=== PATIENT | female | born 1950 | race Caucasian/White ===

== ENCOUNTER 2016-08-02 17:28 | Emergency (ER) | payer OTHER ==
--- NOTE | 2016-08-02 19:32 | DIAGNOSTIC IMAGING REPORT ---
PROCEDURE: XR CHEST 2 VIEW INDICATION: SHORTNESS OF BREATH TECHNIQUE: Two views. COMPARISON: 01/19/2016 FINDINGS: The cardiomediastinal contour is stable, within normal limits. The central vasculature is not congested. Strandy linear density laterally in the left mid lung and minimal hazy opacities posterior and lateral at the lung bases. Small bilateral effusions. The visualized osseous structures are intact. IMPRESSION: 1. Strand-like density laterally in the left mid lung is likely subsegmental atelectasis from mucous plugging, although an infectious process or infarct is not excluded. Correlate clinically. 2. Minor bibasilar opacities and small bilateral effusions. 3. Discussed with Soni Moore in the emergency room.
--- NOTE | 2016-08-02 21:28 | DIAGNOSTIC IMAGING REPORT ---
PROCEDURE: CTA THORAX WITH CONTRAST INDICATION: SHORTNESS OF BREATH TECHNIQUE: 84 ml of Isovue 370 was injected intravenously and axial images were obtained of the chest with 3D sagittal and coronal MIP reconstructions. COMPARISON: None. FINDINGS: Normal opacification of the pulmonary arterial tree without filling defect. The central pulmonary arteries are normal caliber. Thoracic aorta is normal caliber. The great vessels demonstrate a normal branching pattern. Heart size is normal. Trace pericardial effusion/pericardial thickening. There are shoddy prevascular lymph nodes and mildly prominent adenopathy in the AP window, paratracheal, subcarinal, and bilateral hilar regions. There is moderate peribronchial thickening in the lingula, right middle, and lower lobes bilaterally. Plate-like atelectatic changes are seen in the lateral lingula. Mild bibasilar ground-glass opacity and mild interstitial thickening. Very small bilateral pleural effusions, right greater than left. Osseous structures are intact. The images of the upper abdomen demonstrate a mildly enlarged liver, partially decompressed gallbladder with pericholecystic fluid at the fundus, and mildly enlarged spleen measuring at least 14.6 cm in craniocaudal dimension. IMPRESSION: 1. No pulmonary embolus. 2. Bilateral peribronchial thickening and left upper lobe atelectatic changes. In combination with mediastinal and hilar adenopathy, findings are probably infectious/inflammatory, although the chronicity is uncertain. 3. Slight interstitial thickening, hazy bibasilar ground-glass opacity, and small bilateral pleural effusions raise the possibility of interstitial and early alveolar edema. 4. Partially decompressed gallbladder with questionable pericholecystic fluid around the fundus. Clinical correlation is recommended. Ultrasound for further evaluation of the gallbladder needed. 5. Mild hepatosplenomegaly. 6. Discussed with Soni Moore in the emergency room.
--- NOTE | 2016-08-02 21:33 | ED NURSING NOTES ---
Clinical Report - Nurses [facility] [address] [place] [address] 08/02/2016 17:30 Patient: DARON LOCKETT TRIAGE Triage time 17:45. Acuity: LEVEL 3. Chief Complaint: SHORTNESS OF BREATH, DIFFICULTY BREATHING and WHEEZING. Alert. SEPSIS SCREEN: Sepsis Screen. Negative (no infection suspected/documented). --17:52 Lorna Rodriguez R.N. 17:43 08/02/16. BP: 155/101. HR: 81. RR: 32. O2 saturation: 94%. Temp: 98.7 F. Pain level now: 02/06. --17:52 Lorna Rodriguez R.N. DESTINEY COMA SCORE: Destiney Coma Scale: 15- eyes open spontaneously (4); best verbal response- oriented x 4 (5); best motor response- obeys commands (6). --17:52 Lorna Rodriguez R.N. Weight: 104.3 kg stated. Height/Length: 66.5 inches Per Patient. BMI: 36.6. --17:46 Lorna Rodriguez R.N. Medications Albuterol Sulfate HFA Inhalation 2 puffs, 4x a day as needed. ClonazePAM Oral 0.5 mg, at bedtime. Furosemide Oral 40 mg, daily. Ibuprofen Oral 800 mg. Mirtazapine Oral 30 mg, at bedtime. Omeprazole Oral. QUEtiapine Fumarate Oral 200 mg, daily. --17:49 Lorna Rodriguez R.N. Sennosides Oral. Simvastatin Oral 40 mg, daily. Venlafaxine HCl Oral 75 mg, 2x a day. Warfarin Sodium Oral, , for a fib. --17:49 Lorna Rodriguez R.N. The following entry was struck and corrected by Lorna Rodriguez R.N., 17:50 (08/02/16) Reason for correction - other(correction). <<STRICKEN ENTRY-- Warfarin Sodium Oral. --17:49 Lorna Rodriguez R.N. --END STRIKE>>. Allergies Benadryl. Codeine. Fluticasone. Methocarbamol. Montelukast. Tramadol. --17:49 Lorna Rodriguez R.N. History Arrived by private vehicle. Historian: patient. Accompanied by spouse. Primary physician (Miriam at [facility]). Onset. (2 days ago). 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 SOCIAL HX: Former smoker, end date 2004. History of drug use. (quit meth 12 years ago). No alcohol use. NUTRITIONAL RISK ASSESSMENT: The nutritional risk assessment revealed no deficiencies. FUNCTIONAL ASSESSMENT: Functional assessment: no impairments noted. --17:52 Lorna Rodriguez R.N. PROBLEMS: Oral Anticoagulation Therapy. COPD - Chronic Obstructive Pulmonary Disease. Hypertension. Atrial Fibrillation. Bipolar Disorder. Depression. --17:50 Lorna Rodriguez R.N. ADDITIONAL SURGERIES: Appendectomy. Esophageal surgery. --17:51 Lorna Rodriguez R.N. Interventions ID band on patient. To room. --17:52 Lorna Rodriguez R.N. PHYSICAL ASSESSMENT 17:52 08/02/16. Patient gowned. RESPIRATORY: Moderate respiratory distress. The patient can speak a few words at a time. Accessory muscle use. Wheezing present. --17:52 Lorna Rodriguez R.N. RESPIRATORY: ( Pt's smokes.). --17:57 Lorna Rodriguez R.N. NURSING PROGRESS NOTES 17:53 08/02/16. Patient identifiers checked. Call light placed in reach. Bed placed in lowest position. Patient ready for evaluation- chart flagged. --17:53 Lorna Rodriguez R.N. 18:03 08/02/2016 Albuterol Neb TX 2 unit dose given. --18:03 Sagar Low 18:03 08/02/2016 ALBUTEROL NEB W ATROVENT Neb TX 1 unit dose given. --18:03 Sagar Low EKG time: (1816). EKG was ordered, performed by a tech and shown to the MURAL PAINTER. --18:23 Uche Spicer, RAGHU Tech1 18:29 08/02/2016 Site #1 started via IV in the left antecubital space with an 20g angiocath, with aseptic technique and good blood return; one attempt. Blood drawn: rainbow set. Labeled in the presence of the patient and sent to the lab. Saline lock flushed with 10 mL saline. --18:29 Jeannette Hanson R.N. 18:36 08/02/2016 SOLU-MEDROL (MethylPREDNISolone Sodium Succ) IVP 125 mg given over 2 minute(s) via site #1. Allergies verified and confirmed 5 rights. IV patency established. IV site checked: no pain, redness, or swelling. IV flushed thoroughly pre- and post-medication administration. IVP given by RN. --18:36 Jeannette Hanson R.N. Patient walked to radiology with [employer]. (18:36 Aug 02 2016). --18:36 Jeannette Hanson R.N. 18:36 08/02/16. BP: 112/42 (large adult cuff) taken on the right arm, while sitting. HR: 96. RR: 20. O2 saturation: 98% on room air. Pain level now: 0/10. --18:37 Jeannette Hanson R.N. 18:00 08/02/16. BP: 140/79 (large adult cuff) taken on the right arm, while sitting. HR: 92. RR: 20. O2 saturation: 98% on room air. --18:37 Jeannette Hanson R.N. 18:53 08/02/16. BP: 155/109 (large adult cuff) taken on the right arm, while sitting. HR: 89. RR: 20 (regular). O2 saturation: 95% on room air. Pain level now: 8/10. --18:54 Jeannette Hanson R.N. Patient walked back to ED from radiology with [employer]. (18:54 Aug 02 2016). --18:54 Jeannette Hanson R.N. 19:56 08/02/16. BP: 103/47. HR: 92. RR: 18. O2 saturation: 93%. Pain level now: 8/10. Additional comments: Chest pain. --19:58 Jesus Freedman R.N. 21:25 08/02/2016 Toradol IVP 30 mg given over 2 minute(s) via site #1. Allergies verified and confirmed 5 rights. IV patency established. IV site checked: no pain, redness, or swelling. IV flushed thoroughly pre- and post-medication administration. IVP given by RN. --21:25 Jesus Freedman R.N. 21:45 08/02/2016 Hydrocodone-APAP (Hydrocodone-Acetaminophen) PO 5/325 mg Tablets 1 tab given. Allergies verified, confirmed 5 rights and sedative warning given to the patient. --23:02 Jesus Freedman R.N. DISPOSITION / DISCHARGE 21:40 08/02/16. BP: 148/87. HR: 67. RR: 20. O2 saturation: 96% on room air. Temp: 98.2 F (oral). Pain level now: 05/09. Additional comments: Chest. --22:46 Jesus Freedman R.N. Departure time: 2144. --22:46 Jesus Freedman R.N. 21:45. Condition at departure: improved. No learning barriers present. Discharge instructions provided and reviewed with the patient. Reviewed medication(s) (prescription given to pt). Reviewed referral to family practice for followup. Patient verbalized understanding. Written instructions provided in Jamaican. The patient was discharged by the physician. She was discharged home and accompanied by top collar maker. She left the Emergency Department ambulatory and via private vehicle. Plant Facilities Technician driving. --22:50 Jesus Freedman R.N. Locked/Released at 08/02/2016 23:03 by Jesus Freedman R.N.
--- NOTE | 2016-08-02 21:33 | ED CLINICAL REPORT ---
Clinical Report - Physicians/Mid Levels [facility] [address] [place] [address] 08/02/2016 17:30 Patient: DARON LOCKETT Time Seen: 17:55; initial patient contact, initial documentation, patient care assumed. Arrived- By private vehicle. Historian- patient. HISTORY OF PRESENT ILLNESS Chief Complaint: DYSPNEA and HISTORY OF CHRONIC OBSTRUCTIVE PULMONARY DISEASE. This started 2 days ago and is still present. The dyspnea is described as moderate and is worsened by walking and exertion. The patient has had a cough, dyspnea on exertion and anxiety. No sputum production, fever, wheezing, chest pain or dizziness. No palpitations. She has had chest discomfort (epigastric). Similar symptoms previously: Chronically, worse. Recent medical care: Not recently seen/assessed. REVIEW OF SYSTEMS No sore throat, nasal discharge, sinus drainage or vomiting. She has had abdominal pain. The pain is described as located in the epigastrium. All systems otherwise negative, except as recorded above. PAST HISTORY See nurses notes. PROBLEMS: Oral Anticoagulation Therapy. COPD - Chronic Obstructive Pulmonary Disease. Hypertension. Atrial Fibrillation. Bipolar Disorder. Depression. --17:50 Lorna Rodriguez R.N. ADDITIONAL SURGERIES: Appendectomy. Esophageal surgery. --17:51 Lorna Rodriguez R.N. Recovering substance abuse (methamphetamines). SOCIAL HISTORY Former smoker. History of drug use: methamphetamines. Is a recovering addict. No alcohol use. No recent travel. Is a local resident. FAMILY HISTORY Negative. ADDITIONAL NOTES The nursing notes have been reviewed with agreement regarding the chief complaint, HPI, ROS, PMH and patient medications and allergies. PHYSICAL EXAM Vital Signs: 08/02/2016 17:43 BP: 155/101. HR: 81. RR: 32. O2 saturation: 94%. Temp: 98.7 F. Pain level now: 10/10. Have been reviewed as abnormal and appear to be correct. Hypertensive. Heart rate normal. Tachypneic. Temperature normal. Oxygen saturation normal. Appearance: Alert. No acute distress. Anxious. Eyes: Pupils equal, round and reactive to light. Eyes normal inspection. Neck: Normal inspection. No jugular venous distention. Neck supple. CVS: Normal heart rate and rhythm. Heart sounds normal. Pulses normal. Respiratory: No respiratory distress. Breath sounds abnormal. Inspiratory mild bilateral wheezes diffusely. Abdomen: Mildly obese. Back: Normal inspection. Skin: Skin warm and dry. Normal skin color. No rash. Normal skin turgor. Extremities: Extremities exhibit normal ROM. No lower extremity edema. Neuro: Oriented X 3. No motor deficit. No sensory deficit. LABS, X-RAYS, AND EKG EKG: EKG time: (1816). No acute process. No acute ischemia. Normal EKG. Rate: 79. Normal EKG. The study has been interpreted contemporaneously by me (and dr moore). The EKG appears to be a good tracing. Interpretation time: 1818. Chest X-ray: Normal Chest X-Ray. The X-rays were interpreted by the radiologist and discussed with the radiologist. Interpretation time: 19:29. Chest CT: . (IMPRESSION: 1. No pulmonary embolus. 2. Bilateral peribronchial thickening and left upper lobe atelectatic changes. In combination with mediastinal and hilar adenopathy, findings are probably infectious/inflammatory, although the chronicity is uncertain. 3. Slight interstitial thickening, hazy bibasilar ground-glass opacity, and small bilateral pleural effusions raise the possibility of interstitial and early alveolar edema. 4. Partially decompressed gallbladder with questionable pericholecystic fluid around the fundus. Clinical correlation is recommended. Ultrasound for further evaluation of the gallbladder needed. 5. Mild hepatosplenomegaly. 6. Discussed with Soni Moore in the emergency room. Electronically Final signed by:Radha Coronado MD 08/02/2016 9:28:09 PM). The study was interpreted by the radiologist and discussed with the radiologist. Interpretation time: 21:16. Laboratory Tests: CBC w Diff: (MORRIS: 08/02/2016 18:25) ( MsgRcvd 08/02/2016 18:44) Final results Test Result Flag Units (Reference) WHITE BLOOD COUNT 7.3 K/uL (4.5-11.5) RED BLOOD COUNT 3.89 L M/uL (4.00-5.20) HEMOGLOBIN 11.2 L gm/dL (12.0-16.0) HEMATOCRIT 33.4 L % (36.0-46.0) MEAN CELL VOLUME 86 fL (80-100) MEAN CORPUSCULAR HGB 29 pg (26-34) MEAN CORPUSCULAR HGB CONC 34 g/dL (31-37) RED CELL DISTRIBUTION WIDTH 14.7 % (11.6-14.8) PLATELET COUNT 217 K/uL (150-400) NEUTROPHIL % 66.4 % (50-75) LYMPH % 25.4 % (25-40) MONO % 4.6 % (3-14) EOSINOPHIL % 3.4 % (0-4) BASOPHIL % 0.2 % (0-2) [id number]: (MORRIS: 08/02/2016 18:25) ( [facility] 08/02/2016 19:53) Final results Test Result Flag Units (Reference) D-DIMER QUANTITATIVE 1.18 H ug/mLFEU (0.27-0.52) The primary value of this quantitative assay relates toits negative predictive value (i.e. exclusion) of pulmonaryembolism/deep vein thrombosis/DIC.Elevated levels of d-dimer may also occur with:, age, cancer, inflammation, liver disease,post-op, infection, hematoma, coronary disease, peripheralarteriopathy, bleeding disorders and thrombolytic treatment.Results should be correlated with other clinical andradiological data.Testing Methodology: Latex Immunoassay BNP: (MORRIS: 08/02/2016 18:25) ( [facility] 08/02/2016 19:00) Final results Test Result Flag Units (Reference) B-TYPE NATRIURETIC PEPTIDE 176 H pg/ml (5-100) CMP: (MORRIS: 08/02/2016 18:25) ( [facility] 08/02/2016 18:49) Final results Test Result Flag Units (Reference) GLUCOSE 132 H mg/dL (70-110) BUN 13 mg/dL (7-18) CREATININE 0.7 mg/dL (0.6-1.3) Estimated GFR >60 mL/min Estimated GFR- >60 mL/min Note: Persistent reduction over 3 months in eGFR<60 mL/min/1.73 m2 defines CKD. Patients with eGFR values>=60 mL/min/1.73 m2 may also have CKD if evidence ofpersistent proteinuria. Additional information may be foundat [email or web address].org. SODIUM 143 mmol/L (136-145) POTASSIUM 4.2 mmol/L (3.5-5.1) CHLORIDE 107 mmol/L (98-107) CARBON DIOXIDE 29 mmol/L (21-32) CALCIUM 9.3 mg/dL (8.5-10.1) TOTAL PROTEIN 6.6 g/dL (6.4-8.2) ALBUMIN 3.4 g/dL (3.3-5.0) BILIRUBIN, TOTAL 0.6 mg/dL (0.0-1.0) ALKALINE PHOSPHATASE 151 H U/L (46-116) AST (SGOT) 45 H U/L (15-37) ALT (SGPT) 69 U/L (12-78) CPK 21 L U/L (24-260) TROPONIN I <0.05 L ng/mL (0.00-1.5) TROPONIN REFERENCE RANGE:<0.1 NEGATIVE0.1-1.5 INDETERMINANT>1.5 POSITIVE . PROGRESS AND PROCEDURES Course of Care: 1830. RT reporting that pt opened up after last neb tx and was breathing much better 21:33 08/02/16. pt updated with ct results, pt stating she still felt better and ready to go home. 08/02/2016 18:36 BP: 112/42. HR: 96. RR: 20. O2 saturation: 98%. Pain level now: 0/10. 23:06. Vital Signs: have been reviewed as normal and appear to be correct. The patient's symptoms are unchanged. She complains of pain. Vital signs have been reviewed. Physical exam findings are improved. Alert. Oriented X3. No acute distress. Breath sounds normal. No respiratory distress. Normal heart rate and rhythm. Heart sounds normal. Abdomen soft. Abdominal tenderness. Mild abdominal tenderness in the epigastric area and left upper quadrant. Skin warm and dry. Oriented X 3. Patient counseled in person regarding the patient's stable condition, test results and diagnosis. 21:17. Differential Diagnosis: I considered asthma, chronic obstructive pulmonary disease, pneumonia, pleural effusion, congestive heart failure, myocardial infarction and hyperventilation as a possible cause of dyspnea in this patient. This is a partial list of diagnoses considered. (anxiety). Above considerations are based on history, physical exam, reassessment, laboratory data, X-Ray data and EKG. Differential diagnosis was discussed with patient. Disposition: Discharged home in good and improved condition (21:33). Condition: good and stable. CLINICAL IMPRESSION Acute exacerbation of COPD (asthmatic, chronic bronchitis). No emphysema. INSTRUCTIONS Avoid tobacco smoke. Do not smoke. Warnings: GENERAL WARNINGS: Return or contact your physician immediately if your condition worsens or changes unexpectedly, if not improving as expected, or if other problems arise. SPECIFICALLY, return if you develop chest pain, neck pain, jaw pain, shoulder pain, arm pain, back pain, fever, productive cough, difficulty breathing, excessive fatigue, a fluttering sensation in the chest, fainting or leg swelling. Prescription Medications: Albuterol HFA oral inhaler: inhale 1 to 2 puffs every four to six hours as needed for difficulty breathing. Dispense one (1) unit. No refills. Prednisone 20 mg: take 3 orally every day for 5 days. Dispense fifteen (15). No refills. [place] 5 mg / 325 mg tablets: take 1 orally every 6 hours as needed for pain. Dispense ten (10). No refill. Follow-up: Follow up with your doctor in two days even if well. Call for an appointment. Summary of care provided to patient. Understanding of the discharge instructions verbalized by patient. (Electronically signed by Soni Moore A.R.N.P. 08/02/2016 23:06)
--- NOTE | 2016-08-02 21:33 | ED NURSING NOTES ---
Clinical Report - Nurses [facility] [address] [place] [address] 08/02/2016 17:30 Patient: DARON LOCKETT TRIAGE Triage time 17:45. Acuity: LEVEL 3. Chief Complaint: SHORTNESS OF BREATH, DIFFICULTY BREATHING and WHEEZING. Alert. SEPSIS SCREEN: Sepsis Screen. Negative (no infection suspected/documented). --17:52 Lorna Rodriguez R.N. 17:43 08/02/16. BP: 155/101. HR: 81. RR: 32. O2 saturation: 94%. Temp: 98.7 F. Pain level now: 02/06. --17:52 Lorna Rodriguez R.N. DESTINEY COMA SCORE: Destiney Coma Scale: 15- eyes open spontaneously (4); best verbal response- oriented x 4 (5); best motor response- obeys commands (6). --17:52 Lorna Rodriguez R.N. Weight: 104.3 kg stated. Height/Length: 66.5 inches Per Patient. BMI: 36.6. --17:46 Lorna Rodriguez R.N. Medications Albuterol Sulfate HFA Inhalation 2 puffs, 4x a day as needed. ClonazePAM Oral 0.5 mg, at bedtime. Furosemide Oral 40 mg, daily. Ibuprofen Oral 800 mg. Mirtazapine Oral 30 mg, at bedtime. Omeprazole Oral. QUEtiapine Fumarate Oral 200 mg, daily. --17:49 Lorna Rodriguez R.N. Sennosides Oral. Simvastatin Oral 40 mg, daily. Venlafaxine HCl Oral 75 mg, 2x a day. Warfarin Sodium Oral, , for a fib. --17:49 Lorna Rodriguez R.N. The following entry was struck and corrected by Lorna Rodriguez R.N., 17:50 (08/02/16) Reason for correction - other(correction). <<STRICKEN ENTRY-- Warfarin Sodium Oral. --17:49 Lorna Rodriguez R.N. --END STRIKE>>. Allergies Benadryl. Codeine. Fluticasone. Methocarbamol. Montelukast. Tramadol. --17:49 Lorna Rodriguez R.N. History Arrived by private vehicle. Historian: patient. Accompanied by spouse. Primary physician (Miriam at [facility]). Onset. (2 days ago). 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 SOCIAL HX: Former smoker, end date 2004. History of drug use. (quit meth 12 years ago). No alcohol use. NUTRITIONAL RISK ASSESSMENT: The nutritional risk assessment revealed no deficiencies. FUNCTIONAL ASSESSMENT: Functional assessment: no impairments noted. --17:52 Lorna Rodriguez R.N. PROBLEMS: Oral Anticoagulation Therapy. COPD - Chronic Obstructive Pulmonary Disease. Hypertension. Atrial Fibrillation. Bipolar Disorder. Depression. --17:50 Lorna Rodriguez R.N. ADDITIONAL SURGERIES: Appendectomy. Esophageal surgery. --17:51 Lorna Rodriguez R.N. Interventions ID band on patient. To room. --17:52 Lorna Rodriguez R.N. PHYSICAL ASSESSMENT 17:52 08/02/16. Patient gowned. RESPIRATORY: Moderate respiratory distress. The patient can speak a few words at a time. Accessory muscle use. Wheezing present. --17:52 Lorna Rodriguez R.N. RESPIRATORY: ( Pt's smokes.). --17:57 Lorna Rodriguez R.N. NURSING PROGRESS NOTES 17:53 08/02/16. Patient identifiers checked. Call light placed in reach. Bed placed in lowest position. Patient ready for evaluation- chart flagged. --17:53 Lorna Rodriguez R.N. 18:03 08/02/2016 Albuterol Neb TX 2 unit dose given. --18:03 Sagar Low 18:03 08/02/2016 ALBUTEROL NEB W ATROVENT Neb TX 1 unit dose given. --18:03 Sagar Low EKG time: (1816). EKG was ordered, performed by a tech and shown to the WILDLIFE CONSERVATIONIST. --18:23 Uche Spicer, RAGHU Tech1 18:29 08/02/2016 Site #1 started via IV in the left antecubital space with an 20g angiocath, with aseptic technique and good blood return; one attempt. Blood drawn: rainbow set. Labeled in the presence of the patient and sent to the lab. Saline lock flushed with 10 mL saline. --18:29 Jeannette Hanson R.N. 18:36 08/02/2016 SOLU-MEDROL (MethylPREDNISolone Sodium Succ) IVP 125 mg given over 2 minute(s) via site #1. Allergies verified and confirmed 5 rights. IV patency established. IV site checked: no pain, redness, or swelling. IV flushed thoroughly pre- and post-medication administration. IVP given by RN. --18:36 Jeannette Hanson R.N. Patient walked to radiology with [employer]. (18:36 Aug 02 2016). --18:36 Jeannette Hanson R.N. 18:36 08/02/16. BP: 112/42 (large adult cuff) taken on the right arm, while sitting. HR: 96. RR: 20. O2 saturation: 98% on room air. Pain level now: 0/10. --18:37 Jeannette Hanson R.N. 18:00 08/02/16. BP: 140/79 (large adult cuff) taken on the right arm, while sitting. HR: 92. RR: 20. O2 saturation: 98% on room air. --18:37 Jeannette Hanson R.N. 18:53 08/02/16. BP: 155/109 (large adult cuff) taken on the right arm, while sitting. HR: 89. RR: 20 (regular). O2 saturation: 95% on room air. Pain level now: 8/10. --18:54 Jeannette Hanson R.N. Patient walked back to ED from radiology with [employer]. (18:54 Aug 02 2016). --18:54 Jeannette Hanson R.N. 19:56 08/02/16. BP: 103/47. HR: 92. RR: 18. O2 saturation: 93%. Pain level now: 8/10. Additional comments: Chest pain. --19:58 Jesus Freedman R.N. 21:25 08/02/2016 Toradol IVP 30 mg given over 2 minute(s) via site #1. Allergies verified and confirmed 5 rights. IV patency established. IV site checked: no pain, redness, or swelling. IV flushed thoroughly pre- and post-medication administration. IVP given by RN. --21:25 Jesus Freedman R.N. 21:45 08/02/2016 Hydrocodone-APAP (Hydrocodone-Acetaminophen) PO 5/325 mg Tablets 1 tab given. Allergies verified, confirmed 5 rights and sedative warning given to the patient. --23:02 Jesus Freedman R.N. DISPOSITION / DISCHARGE 21:40 08/02/16. BP: 148/87. HR: 67. RR: 20. O2 saturation: 96% on room air. Temp: 98.2 F (oral). Pain level now: 05/09. Additional comments: Chest. --22:46 Jesus Freedman R.N. Departure time: 2144. --22:46 Jesus Freedman R.N. 21:45. Condition at departure: improved. No learning barriers present. Discharge instructions provided and reviewed with the patient. Reviewed medication(s) (prescription given to pt). Reviewed referral to family practice for followup. Patient verbalized understanding. Written instructions provided in Gabonese. The patient was discharged by the physician. She was discharged home and accompanied by residential treatment staff. She left the Emergency Department ambulatory and via private vehicle. Crusher Machine Operator driving. --22:50 Jesus Freedman R.N. Locked/Released at 08/02/2016 23:03 by Jesus Freedman R.N.
--- NOTE | 2016-08-02 21:33 | ED ORDER SUMMARY ---
..... Patient: DARON LOCKETT OrderSheet [facility] VisitID: [id number] [address] [place] [address] 65y, F Registration Date/Time: 08/02/2016 ORDER SHEET Weight: 104.3 kg (stated) Allergies: Benadryl, Codeine, Fluticasone, Methocarbamol, Montelukast, Tramadol GENERAL ORDERS: Chest 2V Urgent (17:59 08/02/2016 HBivens A.R.N.P.) (Ack 18:01 LNations ER Tech1) (18:45 LNations ER Tech1) CBC w Diff Urgent (17:59 08/02/2016 HBivens A.R.N.P.) (Ack 18:00 LNations ER Tech1) (18:29 JSanders R.N.) CMP Urgent (17:59 08/02/2016 HBivens A.R.N.P.) (Ack 18:00 LNations ER Tech1) (18:29 JSanders R.N.) CPK Urgent (17:59 08/02/2016 HBivens A.R.N.P.) (Ack 18:00 LNations ER Tech1) (18:29 JSanders R.N.) Troponin-I Urgent (17:59 08/02/2016 HBivens A.R.N.P.) (Ack 18:00 LNations ER Tech1) (18:29 JSanders R.N.) BNP Urgent (17:59 08/02/2016 HBivens A.R.N.P.) (Ack 18:00 LNations ER Tech1) (18:29 JSanders R.N.) EKG - ER Stat (17:59 08/02/2016 HBivens A.R.N.P.) (Ack 18:00 LNations ER Tech1) (18:23 PWeiler ER Tech1) D-Dimer Urgent (19:29 08/02/2016 HBivens A.R.N.P.) (Ack 19:36 IJurca ER Tech1) (20:14 IJurca ER Tech1) CTA Thorax w Cont (No) (normal) Urgent (19:56 08/02/2016 HBivens A.R.N.P.) (Ack 19:57 IJurca ER Tech1) (20:48 MCampbell) MEDICATION ORDERS: Albuterol Neb w Atrovent 1 unit dose (NOW) (18:00 08/02/2016 HBivens A.R.N.P.) (18:03 MNance) Albuterol Neb Tx 2 unit doses (NOW) (18:00 08/02/2016 HBivens A.R.N.P.) (18:03 MNance) Hydrocodone-APAP PO 5/325 mg (NOW, HIGH ALERT MEDICATION) (23:00 08/02/2016 Pita R.N. verbal order read back to HBivens A.R.N.P.) (23:02 Pita R.N.) IV FLUIDS: IV Saline Lock (17:59 08/02/2016 HBivens A.R.N.P.) (18:29 Costa R.N.) Solu-MEDROL IV 125 mg (NOW) (18:00 08/02/2016 HBivens A.R.N.P.) (18:36 ALBANanders R.N.) Toradol IV 30 mg (NOW) (20:02 08/02/2016 HBivens A.R.N.P.) (21:25 omanelli R.N.) ORDER SHEET NOTES: [Electronically signed by Jesus Freedman R.N. (23:03 08/02/2016)] [Electronically signed by Soni Moore.R.N.P. (23:06 08/02/2016)] [Electronically locked/signed by Jesus Freedman R.N. (23:03 08/02/2016)]
--- NOTE | 2016-08-02 21:33 | ED ORDER SUMMARY ---
..... Patient: DARON LOCKETT OrderSheet [facility] VisitID: [id number] [address] [place] [address] 65y, F Registration Date/Time: 08/02/2016 ORDER SHEET Weight: 104.3 kg (stated) Allergies: Benadryl, Codeine, Fluticasone, Methocarbamol, Montelukast, Tramadol GENERAL ORDERS: Chest 2V Urgent (17:59 08/02/2016 HBivens A.R.N.P.) (Ack 18:01 LNations ER Tech1) (18:45 LNations ER Tech1) CBC w Diff Urgent (17:59 08/02/2016 HBivens A.R.N.P.) (Ack 18:00 LNations ER Tech1) (18:29 JSanders R.N.) CMP Urgent (17:59 08/02/2016 HBivens A.R.N.P.) (Ack 18:00 LNations ER Tech1) (18:29 JSanders R.N.) CPK Urgent (17:59 08/02/2016 HBivens A.R.N.P.) (Ack 18:00 LNations ER Tech1) (18:29 JSanders R.N.) Troponin-I Urgent (17:59 08/02/2016 HBivens A.R.N.P.) (Ack 18:00 LNations ER Tech1) (18:29 JSanders R.N.) BNP Urgent (17:59 08/02/2016 HBivens A.R.N.P.) (Ack 18:00 LNations ER Tech1) (18:29 JSanders R.N.) EKG - ER Stat (17:59 08/02/2016 HBivens A.R.N.P.) (Ack 18:00 LNations ER Tech1) (18:23 PWeiler ER Tech1) D-Dimer Urgent (19:29 08/02/2016 HBivens A.R.N.P.) (Ack 19:36 IJurca ER Tech1) (20:14 IJurca ER Tech1) CTA Thorax w Cont (No) (normal) Urgent (19:56 08/02/2016 HBivens A.R.N.P.) (Ack 19:57 IJurca ER Tech1) (20:48 MCampbell) MEDICATION ORDERS: Albuterol Neb w Atrovent 1 unit dose (NOW) (18:00 08/02/2016 HBivens A.R.N.P.) (18:03 MNance) Albuterol Neb Tx 2 unit doses (NOW) (18:00 08/02/2016 HBivens A.R.N.P.) (18:03 MNance) Hydrocodone-APAP PO 5/325 mg (NOW, HIGH ALERT MEDICATION) (23:00 08/02/2016 Pita R.N. verbal order read back to HBivens A.R.N.P.) (23:02 Pita R.N.) IV FLUIDS: IV Saline Lock (17:59 08/02/2016 HBivens A.R.N.P.) (18:29 Costa R.N.) Solu-MEDROL IV 125 mg (NOW) (18:00 08/02/2016 HBivens A.R.N.P.) (18:36 ALBANanders R.N.) Toradol IV 30 mg (NOW) (20:02 08/02/2016 HBivens A.R.N.P.) (21:25 omanelli R.N.) ORDER SHEET NOTES: [Electronically signed by Jesus Freedman R.N. (23:03 08/02/2016)] [Electronically signed by Soni Moore.R.N.P. (23:06 08/02/2016)] [Electronically locked/signed by Jesus Freedman R.N. (23:03 08/02/2016)]
--- NOTE | 2016-08-02 23:07 | ED MED RECONCILIATION SUMMARY ---
Patient: DARON LOCKETT Medication Reconciliation Report [facility] VisitID: [id number] [place] [address] 65y, F Registration Date/Time: 08/02/2016 Weight: 104.3 kg Height/Length: 60 in. BMI: 36.6 ALLERGIES: Benadryl, Codeine, Fluticasone, Methocarbamol, Montelukast, Tramadol The patient's Home Medications are listed below: THE FOLLOWING MEDICATIONS NEED TO BE RECONCILED: Albuterol Sulfate HFA Inhalation 2 puffs, 4x a day ClonazePAM Oral 0.5 mg, at bedtime Furosemide Oral 40 mg, daily Ibuprofen Oral 800 mg Mirtazapine Oral 30 mg, at bedtime Omeprazole Oral QUEtiapine Fumarate Oral 200 mg, daily Sennosides Oral Simvastatin Oral 40 mg, daily Venlafaxine HCl Oral 75 mg, 2x a day Warfarin Sodium Oral, for a fib The source(s) of the original Home Medication information: Not obtained. The following Medications were given to the patient in the Emergency Department: Albuterol [Neb Tx] Neb TX 2 unit dose, administered: 08/02/2016 6:03:00 PM ALBUTEROL NEB W ATROVENT Neb TX 1 unit dose, administered: 08/02/2016 6:03:00 PM SOLU-MEDROL [IVP] IVP 125 mg, administered: 08/02/2016 6:36:00 PM Toradol [IVP] IVP 30 mg, administered: 08/02/2016 9:25:00 PM Hydrocodone-APAP [PO] PO 1 tab, administered: 08/02/2016 9:45:00 PM The following Medications were prescribed to the patient: Albuterol HFA oral inhaler: inhale 1 to 2 puffs every four to six hours as needed for difficulty breathing. Dispense one (1) unit. No refills. -- Soni Moore, A.R.N.P. Prednisone 20 mg: take 3 orally every day for 5 days. Dispense fifteen (15). No refills. -- Soni Moore, A.R.N.P. [place] 5 mg / 325 mg tablets: take 1 orally every 6 hours as needed for pain. Dispense ten (10). No refill. -- Soni Moore A.R.N.P.
--- NOTE | 2016-08-02 23:07 | ED DISCHARGE INSTRUCTIONS ---
Patient: DARON LOCKETT General Instructions [facility] VisitID: [id number] [place] [address] 65y, F Registration Date/Time: 08/02/2016 Acute exacerbation of COPD (asthmatic, chronic bronchitis). No emphysema. INSTRUCTIONS Avoid tobacco smoke. Do not smoke. Warnings: GENERAL WARNINGS: Return or contact your physician immediately if your condition worsens or changes unexpectedly, if not improving as expected, or if other problems arise. SPECIFICALLY, return if you develop chest pain, neck pain, jaw pain, shoulder pain, arm pain, back pain, fever, productive cough, difficulty breathing, excessive fatigue, a fluttering sensation in the chest, fainting or leg swelling. Prescription Medications: Albuterol HFA oral inhaler: inhale 1 to 2 puffs every four to six hours as needed for difficulty breathing. Dispense one (1) unit. No refills. Prednisone 20 mg: take 3 orally every day for 5 days. Dispense fifteen (15). No refills. [place] 5 mg / 325 mg tablets: take 1 orally every 6 hours as needed for pain. Dispense ten (10). No refill. Follow-up: Follow up with your doctor in two days even if well. Call for an appointment. Summary of care provided to patient. Understanding of the discharge instructions verbalized by patient. ADDITIONAL INFORMATION COPD Flare Both emphysema and chronic bronchitis are forms of chronic obstructive pulmonary disease (COPD). It is most often caused by many years of smoking tobacco. Many things can make your lung disease suddenly get worse. These causes include the common cold, pneumonia, acute bronchitis, missing doses of your regular breathing medicines, or being around smoke, dust, or other air pollutants. A COPD flare may last 7 to 14 days. Your doctor may prescribe medicineto relax your airways and prevent wheezing. Your doctor may also prescribe antibiotics if he or she thinks you havea bacterial infection. Prednisone can helpease inflammation in a severe attack. Home care Here are things you can do at home: Drink lots of water or other fluids (at least 10 glasses a day) during an attack. This will loosen lung secretions and make it easier to breathe. If you have heart or kidney disease, check with your doctor before you drink extra amounts of fluids. Take prescribed medicine exactly at the times advised. If you have a hand-held inhaler or aerosol breathing medicine, don't use it more than once every 4 hours, unless your doctor tells you to. If you were givenan antibiotic or prednisone, take all of the medicine even if you are feeling better after a few days. Don't smoke. Avoid being aroundthe smoke of others. If you were given an inhaler, use it exactly as directed. If you need to use it more often than prescribed, your condition may be getting worse. Call your doctor. Follow-up care Follow up with your health care provider.If you are 65 or older or have chronic asthma or COPD, you should get a single dose of the pneumococcal vaccine and aflu shot each year. You may need a second dose of the pneumococcal vaccine if you had the first dose at a younger age. Your health care provider will let you know if you need a second dose. For all other people, the usual dose for the pneumococcal vaccine is 1 or 2 shots. Yourprovider can discuss this with you. When to seek medical care Get prompt medical attention ifany of these occur: Increased wheezing or shortness of breath Need to use your inhalers more often than usual without relief Fever of 100.4F(38C) or higher, or as directed by your health care provider Coughing up lots of dark-colored or bloody sputum (mucus) Chest pain with each breath You do not start to improve within 24 hours Bronchitis, Viral (Adult: No Abx) You have a viral bronchitis. This illness is contagious during the first few days and is spread through the air by coughing and sneezing, or by direct contact (touching the sick person and then touching your own eyes, nose, or mouth). Most viral illnesses resolve within 10-14 days with rest and simple home remedies, although they may sometimes last for several weeks. Antibiotics will not kill a virus and are generally not prescribed for this condition. Home Care: If symptoms are severe, rest at home for the first 2-3 days. When resuming activity, don't let yourself become overly tired. Do not smoke and avoid the smoke of others. You may use acetaminophen (Tylenol) or ibuprofen (Motrin, Advil) to control fever or pain, unless another pain medicine was prescribed. [NOTE: If you have chronic liver or kidney disease or ever had a stomach ulcer or GI bleeding, talk with your doctor before using these medicines.] (Aspirin should never be used in anyone under 18 years of age who is ill with a fever. It may cause severe liver damage.) Your appetite may be poor so a light diet is fine. Avoid dehydration by drinking 6-8 glasses of fluids per day (water, sport drinks such as Gatorade, juices, tea, soup, etc.). Extra fluids will help loosen secretions in the nose and lung. [id number] cold medicines will not shorten the length of the illness, but may be helpful for cough (Robitussin DM), sore throat (Chloraseptic lozenges or spray), nasal and sinus congestion (Actifed or Sudafed). [NOTE: Do not use decongestants if you have high blood pressure.] Follow Up with your doctor or as directed by our staff if you are not improving over the next week. NOTE: If you are age 65 or older, or if you have chronic asthma or COPD, we recommend a PNEUMOCOCCAL VACCINATION every five years and a yearly INFLUENZAVACCINATION (FLU-SHOT) every . Ask your doctor about this. If you had an X-ray, a radiologist will review it. You will be notified of any new findings that may affect your care.] Get Prompt Medical Attention if any of the following occur: Fever over 100.4F (38.0C) for more than three days Trouble breathing, wheezing or pain with breathing Coughing up blood or increased amounts of colored sputum Weakness, drowsiness, headache, facial pain, ear pain or a stiff neck Albuterol Sulfate Pressurized inhalation, suspension What is this medicine? ALBUTEROL (al BYOO ter ole) is a bronchodilator. It helps open up the airways in your lungs to make it easier to breathe. This medicine is used to treat and to prevent bronchospasm. How should I use this medicine? This medicine is for inhalation through the mouth. Follow the directions on your prescription label. Take your medicine at regular intervals. Do not use more often than directed. Make sure that you are using your inhaler correctly. Ask you doctor or health care provider if you have any questions. Talk to your comber tender regarding the use of this medicine in children. Special care may be needed. What side effects may I notice from receiving this medicine? Side effects that you should report to your doctor or health residential care facility manager as soon as possible: allergic reactions like skin rash, itching or hives, swelling of the face, lips, or tongue breathing problems chest pain feeling faint or lightheaded, falls high blood pressure irregular heartbeat fever muscle cramps or weakness pain, tingling, numbness in the hands or feet vomiting Side effects that usually do not require medical attention (report to your doctor or health residential care facility manager if they continue or are bothersome): cough difficulty sleeping headache nervousness or trembling stomach upset stuffy or runny nose throat irritation unusual taste What may interact with this medicine? anti-infectives like chloroquine and pentamidine caffeine cisapride diuretics medicines for colds medicines for depression or for emotional or psychotic conditions medicines for weight loss including some herbal products methadone some antibiotics like clarithromycin, erythromycin, levofloxacin, and linezolid some heart medicines steroid hormones like dexamethasone, cortisone, hydrocortisone theophylline thyroid hormones What if I miss a dose? If you miss a dose, use it as soon as you can. If it is almost time for your next dose, use only that dose. Do not use double or extra doses. Where should I keep my medicine? Keep out of the reach of children. Store at room temperature between 15 and 30 degrees C (59 and 86 degrees F). The contents are under pressure and may burst when exposed to heat or flame. Do not freeze. This medicine does not work as well if it is too cold. Throw away any unused medicine after the expiration date. Inhalers need to be thrown away after the labeled number of puffs have been used or by the expiration date; whichever comes first. Ventolin HFA should be thrown away 12 months after removing from foil pouch. Check the instructions that come with your medicine. What should I tell my health care provider before I take this medicine? They need to know if you have any of the following conditions: diabetes heart disease or irregular heartbeat high blood pressure pheochromocytoma seizures thyroid disease an unusual or allergic reaction to albuterol, levalbuterol, sulfites, other medicines, foods, dyes, or preservatives or trying to get breast-feeding What should I watch for while using this medicine? Tell your doctor or health residential care facility manager if your symptoms do not improve. Do not use extra albuterol. If your asthma or bronchitis gets worse while you are using this medicine, call your doctor right away. If your mouth gets dry try chewing sugarless gum or sucking hard candy. Drink water as directed. Prednisone Oral tablet What is this medicine? PREDNISONE (PRED ni sone) is a corticosteroid. It is commonly used to treat inflammation of the skin, joints, lungs, and other organs. Common conditions treated include asthma, allergies, and arthritis. It is also used for other conditions, such as blood disorders and diseases of the adrenal glands. How should I use this medicine? Take this medicine by mouth with a glass of water. Follow the directions on the prescription label. Take this medicine with food. If you are taking this medicine once a day, take it in the morning. Do not take more medicine than you are told to take. Do not suddenly stop taking your medicine because you may develop a severe reaction. Your doctor will tell you how much medicine to take. If your doctor wants you to stop the medicine, the dose may be slowly lowered over time to avoid any side effects. Talk to your comber tender regarding the use of this medicine in children. Special care may be needed. What side effects may I notice from receiving this medicine? Side effects that you should report to your doctor or health residential care facility manager as soon as possible: allergic reactions like skin rash, itching or hives, swelling of the face, lips, or tongue changes in emotions or moods changes in vision depressed mood eye pain fever or chills, cough, sore throat, pain or difficulty passing urine increased thirst swelling of ankles, feet Side effects that usually do not require medical attention (report to your doctor or health residential care facility manager if they continue or are bothersome): confusion, excitement, restlessness headache nausea, vomiting skin problems, acne, thin and shiny skin trouble sleeping weight gain What may interact with this medicine? Do not take this medicine with any of the following medications: metyrapone mifepristone This medicine may also interact with the following medications: aminoglutethimide amphotericin B aspirin and aspirin-like medicines barbiturates certain medicines for diabetes, like glipizide or glyburide cholestyramine cholinesterase inhibitors cyclosporine digoxin diuretics ephedrine female hormones, like estrogens and control pills isoniazid ketoconazole NSAIDS, medicines for pain and inflammation, like ibuprofen or naproxen phenytoin rifampin toxoids vaccines warfarin What if I miss a dose? If you miss a dose, take it as soon as you can. If it is almost time for your next dose, talk to your doctor or health residential care facility manager. You may need to miss a dose or take an extra dose. Do not take double or extra doses without advice. Where should I keep my medicine? Keep out of the reach of children. Store at room temperature between 15 and 30 degrees C (59 and 86 degrees F). Protect from light. Keep container tightly closed. Throw away any unused medicine after the expiration date. What should I tell my health care provider before I take this medicine? They need to know if you have any of these conditions: Pasquale's syndrome diabetes glaucoma heart disease high blood pressure infection (especially a virus infection such as chickenpox, cold sores, or herpes) kidney disease liver disease mental illness myasthenia gravis osteoporosis seizures stomach or intestine problems thyroid disease an unusual or allergic reaction to lactose, prednisone, other medicines, foods, dyes, or preservatives or trying to get breast-feeding What should I watch for while using this medicine? Visit your doctor or health residential care facility manager for regular checks on your progress. If you are taking this medicine over a prolonged period, carry an identification card with your name and address, the type and dose of your medicine, and your doctor's name and address. This medicine may increase your risk of getting an infection. Tell your doctor or health residential care facility manager if you are around anyone with measles or chickenpox, or if you develop sores or blisters that do not heal properly. If you are going to have surgery, tell your doctor or health residential care facility manager that you have taken this medicine within the last twelve months. Ask your doctor or health residential care facility manager about your diet. You may need to lower the amount of salt you eat. This medicine may affect blood sugar levels. If you have diabetes, check with your doctor or health residential care facility manager before you change your diet or the dose of your diabetic medicine. Hydrocodone Bitartrate, Acetaminophen Oral tablet What is this medicine? ACETAMINOPHEN; HYDROCODONE (a set a MAXWELL shawna fen; tae droe KOE done) is a pain reliever. It is used to treat mild to moderate pain. How should I use this medicine? Take this medicine by mouth. Swallow it with a full glass of water. Follow the directions on the prescription label. If the medicine upsets your stomach, take the medicine with food or milk. Do not take more than you are told to take. Talk to your comber tender regarding the use of this medicine in children. This medicine is not approved for use in children. What side effects may I notice from receiving this medicine? Side effects that you should report to your doctor or health residential care facility manager as soon as possible: allergic reactions like skin rash, itching or hives, swelling of the face, lips, or tongue breathing problems confusion feeling faint or lightheaded, falls stomach pain yellowing of the eyes or skin Side effects that usually do not require medical attention (report to your doctor or health residential care facility manager if they continue or are bothersome): nausea, vomiting stomach upset What may interact with this medicine? alcohol antihistamines isoniazid medicines for depression, anxiety, or psychotic disturbances medicines for sleep muscle relaxants naltrexone narcotic medicines (opiates) for pain phenobarbital ritonavir tramadol What if I miss a dose? If you miss a dose, take it as soon as you can. If it is almost time for your next dose, take only that dose. Do not take double or extra doses. Where should I keep my medicine? Keep out of the reach of children. This medicine can be abused. Keep your medicine in a safe place to protect it from theft. Do not share this medicine with anyone. Selling or giving away this medicine is dangerous and against the law. Store at room temperature between 15 and 30 degrees C (59 and 86 degrees F). Protect from light. Keep container tightly closed. Throw away any unused medicine after the expiration date. Discard unused medicine and used packaging carefully. Pets and children can be harmed if they find used or lost packages. What should I tell my health care provider before I take this medicine? They need to know if you have any of these conditions: brain tumor Crohn's disease, inflammatory bowel disease, or ulcerative colitis drink more than 3 alcohol-containing drinks per day drug abuse or addiction head injury heart or circulation problems kidney disease or problems going to the bathroom liver disease lung disease, asthma, or breathing problems an unusual or allergic reaction to acetaminophen, hydrocodone, other opioid analgesics, other medicines, foods, dyes, or preservatives or trying to get breast-feeding What should I watch for while using this medicine? Tell your doctor or health residential care facility manager if your pain does not go away, if it gets worse, or if you have new or a different type of pain. You may develop tolerance to the medicine. Tolerance means that you will need a higher dose of the medicine for pain relief. Tolerance is normal and is expected if you take the medicine for a long time. Do not suddenly stop taking your medicine because you may develop a severe reaction. Your body becomes used to the medicine. This does NOT mean you are addicted. Addiction is a behavior related to getting and using a drug for a non-medical reason. If you have pain, you have a medical reason to take pain medicine. Your doctor will tell you how much medicine to take. If your doctor wants you to stop the medicine, the dose will be slowly lowered over time to avoid any side effects. You may get drowsy or dizzy when you first start taking the medicine or change doses. Do not drive, use machinery, or do anything that may be dangerous until you know how the medicine affects you. Stand or sit up slowly. There are different types of narcotic medicines (opiates) for pain. If you take more than one type at the same time, you may have more side effects. Give your health care provider a list of all medicines you use. Your doctor will tell you how much medicine to take. Do not take more medicine than directed. Call emergency for help if you have problems breathing. The medicine will cause constipation. Try to have a bowel movement at least every 2 to 3 days. If you do not have a bowel movement for 3 days, call your doctor or health residential care facility manager. Too much acetaminophen can be very dangerous. Do not take Tylenol (acetaminophen) or medicines that contain acetaminophen with this medicine. Many non-prescription medicines contain acetaminophen. Always read the labels carefully. You have been given the following additional information: COPD Flare Bronchitis, No Antibiotic (Adult) Albuterol Sulfate Pressurized inhalation, suspension Prednisone Oral tablet Hydrocodone Bitartrate, Acetaminophen Oral tablet (Electronically signed by Soni Moore A.R.N.P. 08/02/2016 23:06)
--- NOTE | 2016-08-02 23:07 | ED MAR SUMMARY ---
..... Medication Administration Record [address] [place] [address] Patient: DARON LOCKETT Visit ID: [id number] 65y, F Weight: 104.3 kg Height/Length: 66.5 in BMI: 36.6 ALLERGIES: Benadryl, Codeine, Fluticasone, Methocarbamol, Montelukast, Tramadol Given 18:03 08/02/2016 Sagar Low, Medication Administered: ALBUTEROL NEB W ATROVENT, Dose: 1 unit dose Neb TX. Medication Ordered: Albuterol Neb w Atrovent 1 unit dose (NOW). Given 18:03 08/02/2016 Sagar Low, Medication Administered: ALBUTEROL [NEB TX], Dose: 2 unit dose Neb TX. Medication Ordered: Albuterol Neb Tx 2 unit doses (NOW). Given 18:36 08/02/2016 Jeannette Hanson R.N. Medication Administered: SOLU-MEDROL [IVP] (METHYLPREDNISOLONE SODIUM SUCC), Dose: 125 mg IVP over 2 minute(s), Site: #1 left AC. Medication Ordered: Solu-MEDROL IV 125 mg (NOW). Given 21:25 08/02/2016 Jesus Freedman R.N. Medication Administered: TORADOL [IVP], Dose: 30 mg IVP over 2 minute(s), Site: #1 left AC. Medication Ordered: Toradol IV 30 mg (NOW). Given 21:45 08/02/2016 Jesus Freedman R.N. Medication Administered: HYDROCODONE-APAP [PO] (HYDROCODONE-ACETAMINOPHEN), Dose: 1 tab 5/325 mg Tablets PO. Medication Ordered: Hydrocodone-APAP PO 5/325 mg (NOW, HIGH ALERT MEDICATION).
--- NOTE | 2016-08-02 23:07 | ED MED RECONCILIATION SUMMARY ---
Patient: DARON LOCKETT Medication Reconciliation Report [facility] VisitID: [id number] [place] [address] 65y, F Registration Date/Time: 08/02/2016 Weight: 104.3 kg Height/Length: 60 in. BMI: 36.6 ALLERGIES: Benadryl, Codeine, Fluticasone, Methocarbamol, Montelukast, Tramadol The patient's Home Medications are listed below: THE FOLLOWING MEDICATIONS NEED TO BE RECONCILED: Albuterol Sulfate HFA Inhalation 2 puffs, 4x a day ClonazePAM Oral 0.5 mg, at bedtime Furosemide Oral 40 mg, daily Ibuprofen Oral 800 mg Mirtazapine Oral 30 mg, at bedtime Omeprazole Oral QUEtiapine Fumarate Oral 200 mg, daily Sennosides Oral Simvastatin Oral 40 mg, daily Venlafaxine HCl Oral 75 mg, 2x a day Warfarin Sodium Oral, for a fib The source(s) of the original Home Medication information: Not obtained. The following Medications were given to the patient in the Emergency Department: Albuterol [Neb Tx] Neb TX 2 unit dose, administered: 08/02/2016 6:03:00 PM ALBUTEROL NEB W ATROVENT Neb TX 1 unit dose, administered: 08/02/2016 6:03:00 PM SOLU-MEDROL [IVP] IVP 125 mg, administered: 08/02/2016 6:36:00 PM Toradol [IVP] IVP 30 mg, administered: 08/02/2016 9:25:00 PM Hydrocodone-APAP [PO] PO 1 tab, administered: 08/02/2016 9:45:00 PM The following Medications were prescribed to the patient: Albuterol HFA oral inhaler: inhale 1 to 2 puffs every four to six hours as needed for difficulty breathing. Dispense one (1) unit. No refills. -- Soni Moore, A.R.N.P. Prednisone 20 mg: take 3 orally every day for 5 days. Dispense fifteen (15). No refills. -- Soni Moore, A.R.N.P. Bozman 5 mg / 325 mg tablets: take 1 orally every 6 hours as needed for pain. Dispense ten (10). No refill. -- Soni Moore A.R.N.P.
--- NOTE | 2016-08-02 23:07 | ED MAR SUMMARY ---
..... Medication Administration Record [facility] [address] [place] [address] Patient: DARON LOCKETT Visit ID: [id number] 65y, F Weight: 104.3 kg Height/Length: 66.5 in BMI: 36.6 ALLERGIES: Benadryl, Codeine, Fluticasone, Methocarbamol, Montelukast, Tramadol Given 18:03 08/02/2016 Sagar Low, Medication Administered: ALBUTEROL NEB W ATROVENT, Dose: 1 unit dose Neb TX. Medication Ordered: Albuterol Neb w Atrovent 1 unit dose (NOW). Given 18:03 08/02/2016 Sagar Low, Medication Administered: ALBUTEROL [NEB TX], Dose: 2 unit dose Neb TX. Medication Ordered: Albuterol Neb Tx 2 unit doses (NOW). Given 18:36 08/02/2016 Jeannette Hanson R.N. Medication Administered: SOLU-MEDROL [IVP] (METHYLPREDNISOLONE SODIUM SUCC), Dose: 125 mg IVP over 2 minute(s), Site: #1 left AC. Medication Ordered: Solu-MEDROL IV 125 mg (NOW). Given 21:25 08/02/2016 Jesus Freedman R.N. Medication Administered: TORADOL [IVP], Dose: 30 mg IVP over 2 minute(s), Site: #1 left AC. Medication Ordered: Toradol IV 30 mg (NOW). Given 21:45 08/02/2016 Jesus Freedman R.N. Medication Administered: HYDROCODONE-APAP [PO] (HYDROCODONE-ACETAMINOPHEN), Dose: 1 tab 5/325 mg Tablets PO. Medication Ordered: Hydrocodone-APAP PO 5/325 mg (NOW, HIGH ALERT MEDICATION).
== END 2016-08-02 21:45 | disposition home or self-care (01) ==
LOC: ED SRH 17:28
DX: J44.1 Chronic obstructive pulmonary disease with (acute) exacerbation (principal); I10 Essential (primary) hypertension; Z88.5 Allergy status to narcotic agent; Z88.8 Allergy status to other drugs, medicaments and biological substances; Z87.891 Personal history of nicotine dependence
CPT/HCPCS: 90100; 90616; 91320; 91556; 92610; 95059

== ENCOUNTER 2016-08-11 10:08 | Outpatient (CLI) | payer OTHER ==
--- NOTE | 2016-08-11 11:46 | DIAGNOSTIC IMAGING REPORT ---
PROCEDURE: DEXA BONE DENSITY STUDY CLINICAL INDICATION: SCREENING COMPARISON: None. FINDINGS: LUMBAR SPINE: Bone mineral density 0.788 g/cm2, T score -2.4 osteopenia LEFT HIP: Bone mineral density 0.839 g/cm2, T score -0.8 normal LEFT FEMORAL NECK: Bone mineral density 0.484 g/cm2, T score -3.3 osteoporosis FRACTURE RISK CALCULATION ( when applicable): 10-year fracture risk of a major osteoporotic fracture and of a hip fracture not reported because some T-score at or below -2.5 (T score greater or equal to -1.0 to: NORMAL) (T score from -1.1 to -2.4: OSTEOPENIA) (T score ess than or equal to -2.5: OSTEOPOROSIS) IMPRESSION: 1. Lumbar spine osteopenia, femoral neck osteoporosis.
--- NOTE | 2016-08-11 15:30 | DIAGNOSTIC IMAGING REPORT ---
PROCEDURE: MG BILATERAL SCREENING W/CAD INDICATION: Family history of daughter with early breast cancer TECHNIQUE: Standard CC and MLO views bilaterally. Computer aided detection was used. COMPARISON: 11/17/2013, 11/06/2012 FINDINGS: Mild to moderately dense fibroglandular tissue is present bilaterally. No developing densities, areas of architectural distortion, or suspicious microcalcifications. IMPRESSION: 1. Stable mammograms without radiographic evidence of malignancy. RESULT CODE: 1- Negative. A. A negative report should not delay biopsy if a dominant or clinically suspicious mass is present. 10-15% of cancers are not identified by x-ray. B. A negative report may reinforce clinical impression. C. Adenosis and dense breasts may obscure an underlying neoplasm. D. False positive reports average 6-10%. E.. A yearly screening mammogram is recommended. A reminder letter will be scheduled.
== END 2016-08-11 23:00 ==
LOC: XR SRH 10:08
DX: M85.88 Other specified disorders of bone density and structure, other site (principal); M81.8 Other osteoporosis without current pathological fracture; Z12.31 Encounter for screening mammogram for malignant neoplasm of breast; Z80.3 Family history of malignant neoplasm of breast